=== PATIENT | female | born 2000 | race Caucasian/White ===

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

== ENCOUNTER 2021-01-06 16:30 | Emergency (ER) | payer BC, OTHER ==
[~2021-01-06 16:30] MED LIST changes: +CEPHALEXIN500 M1 PO
[2021-01-07] MEDS ORDERED: ZOFRAN4 MG PO (02:02)
[2021-01-07] MEDS ORDERED: OMNICEF 300 MG300 MG PO (02:02)
== END 2021-01-06 17:42 | disposition left against medical advice (07) ==
LOC: ER1 16:30
DX: Z53.21 Procedure and treatment not carried out due to patient leaving prior to being seen by health care provider (principal)

== ENCOUNTER 2021-01-06 22:07 | Emergency (ER) | payer BC, OTHER ==
[2021-01-07] MEDS ORDERED: ZOFRAN4 MG PO (02:02)
[2021-01-07] MEDS ORDERED: OMNICEF 300 MG300 MG PO (02:02)
== END 2021-01-07 03:44 | disposition home or self-care (01) ==
LOC: ER1 22:07
PROVIDERS: Physician Assistant
DX: N39.0 Urinary tract infection, site not specified (principal); F17.210 Nicotine dependence, cigarettes, uncomplicated; Z90.89 Acquired absence of other organs
CPT/HCPCS: 80307; 81001; 84703; 87086; 99283; J0696

== ENCOUNTER → 2021-01-12 | Outpatient (CLI) | payer BC, OTHER ==
[~2021-01-12] MED LIST changes: +OMNICEF 300 MG300 MG PO
== END ==
LOC: KOH-I 14:52
DX: R10.11 Right upper quadrant pain (principal); R11.2 Nausea with vomiting, unspecified
CPT/HCPCS: 74176

== ENCOUNTER 2021-03-27 14:21 | Emergency (ER) | payer BC, OTHER ==
[2021-03-27 15:15] LABS: HEMOGLOBIN 15.2 gm/dl (12.3-15.3); RED BLOOD COUNT 5.08 M/UL (4.00-5.10)
[2021-03-27 17:06] LABS: BUN/CREATININE RATIO 7 (0-10)
[2021-03-27] MEDS ORDERED: ZOFRAN4 MG PO (18:11)
== END 2021-03-27 18:18 | disposition home or self-care (01) ==
LOC: ER1 14:21
PROVIDERS: Family Medicine
DX: R11.2 Nausea with vomiting, unspecified (principal); R10.9 Unspecified abdominal pain
CPT/HCPCS: 80053; 81001; 82150; 83690; 84703; 85025; 96374; 99284; J2405; J7030

== ENCOUNTER 2021-05-20 07:01 | Emergency (ER) | payer BC, OTHER ==
[2021-05-20 07:59] LABS: HEMOGLOBIN 15.5 gm/dl (12.3-15.3); RED BLOOD COUNT 5.5 M/UL (4.00-5.10); WHITE BLOOD COUNT 17.6 K/UL (4.5-11.0)
[2021-05-20 08:15] LABS: BUN/CREATININE RATIO 6 (0-10)
[2021-05-20] MEDS ORDERED: OMEPRAZOLE40 MG PO (09:08)
[2021-05-20] MEDS ORDERED: PHENERGAN 25 MG25 M1 PO (09:08)
== END 2021-05-20 09:33 | disposition home or self-care (01) ==
LOC: ER1 07:01
PROVIDERS: Family Medicine
DX: E87.6 Hypokalemia (principal); D72.829 Elevated white blood cell count, unspecified; R10.30 Lower abdominal pain, unspecified; Z90.49 Acquired absence of other specified parts of digestive tract; Z90.89 Acquired absence of other organs; F17.200 Nicotine dependence, unspecified, uncomplicated; Z79.899 Other long term (current) drug therapy
CPT/HCPCS: 80053; 81001; 83690; 84703; 85025; 96374; 96375; 99284; C9113; J2550

== ENCOUNTER 2021-05-21 15:01 | Emergency (ER) | payer BC, OTHER ==
[~2021-05-21 15:01] MED LIST changes: +OMEPRAZOLE40 MG PO; +PHENERGAN 25 MG25 M1 PO
[2021-05-21 16:06] LABS: HEMOGLOBIN 15.4 gm/dl (12.3-15.3); RED BLOOD COUNT 5.14 M/UL (4.00-5.10)
[2021-05-21 16:20] LABS: BUN/CREATININE RATIO 7 (0-10)
== END 2021-05-21 17:00 | disposition home or self-care (01) ==
LOC: ER1 15:01
PROVIDERS: Physician Assistant
DX: R10.9 Unspecified abdominal pain (principal); R11.2 Nausea with vomiting, unspecified; Z90.49 Acquired absence of other specified parts of digestive tract; Z90.89 Acquired absence of other organs; Z88.0 Allergy status to penicillin; Z88.2 Allergy status to sulfonamides
CPT/HCPCS: 80053; 81001; 83690; 83735; 84703; 85025; 99284

== ENCOUNTER 2021-05-22 10:57 | Emergency (ER) | payer BC, OTHER | END 2021-05-22 11:40 | disposition left against medical advice (07) | LOC: ER1 10:57 | DX: R11.2 Nausea with vomiting, unspecified (principal); Z90.49 Acquired absence of other specified parts of digestive tract; Z88.2 Allergy status to sulfonamides; Z88.8 Allergy status to other drugs, medicaments and biological substances | CPT/HCPCS: 81001; 84703; 99284 ==